=== PATIENT | male | born 1940 | race Caucasian/White ===

== ENCOUNTER → 2017-05-21 | Outpatient (CLI) | payer MEDICARE, OTHER ==
[2017-05-21 10:26] LABS: MEAN CORPUSCULAR HEMOGLOBIN 30.9 pg (28.0-34.0); MEAN CORPUSCULAR VOLUME 91.1 fl (80.0-100.0)
[2017-05-21 10:51] LABS: eGFR (African) > 60; eGFR (Non-African) > 60
== END ==
LOC: LAB 10:11
PROVIDERS: ATTEND Internal Medicine
DX: I25.9 Chronic ischemic heart disease, unspecified (principal); E78.5 Hyperlipidemia, unspecified
CPT/HCPCS: 36415; 80053; 80061; 85027

== ENCOUNTER 2017-08-17 14:33 | Outpatient (CLI) | payer MEDICARE, OTHER | END 2017-08-17 14:34 | LOC: LAB 14:33 | PROVIDERS: ATTEND Internal Medicine | DX: Z12.5 Encounter for screening for malignant neoplasm of prostate (principal) | CPT/HCPCS: 36415; 84153; G0103 ==

== ENCOUNTER 2018-06-13 09:35 | Outpatient (CLI) | payer MEDICARE, OTHER ==
[2018-06-13 10:06] LABS: MEAN CORPUSCULAR HEMOGLOBIN 30.3 pg (28.0-34.0)
[2018-06-13 10:07] LABS: BASOPHILS % 0.2 (0.0-1.5); EOSINOPHILS % 5.2 % (0.0-6.8); MONOCYTES % 6.6 % (0.0-11.0); NEUTROPHILS # 3.2 # k/uL (1.4-7.7)
[2018-06-13 10:42] LABS: eGFR (Non-African) 57
[2018-06-13 11:19] LABS: APPEARANCE,URINE CLEAR (CLEAR); COLOR,URINE YELLOW (YELLOW); OCCULT BLOOD,URINE NEGATIVE (NEGATIVE); UROBILINOGEN URINE 0.2 Eu (0.2-1.0)
== END 2018-06-13 09:40 | disposition home or self-care (01) ==
LOC: LAB 09:35
PROVIDERS: ATTEND Internal Medicine
DX: I10 Essential (primary) hypertension (principal); Z00.00 Encounter for general adult medical examination without abnormal findings; R73.9 Hyperglycemia, unspecified; Z12.5 Encounter for screening for malignant neoplasm of prostate
CPT/HCPCS: 36415; 80053; 80061; 81002; 83036; 84153; 84443; 85025; G0103